=== PATIENT | male | born 1965 | race Caucasian/White ===

== ENCOUNTER 2019-07-16 15:44 | Emergency (ER) | payer BC ==
--- NOTE | 2019-07-16 15:57 | ED.PDOC ---
History of Present Illness - General Chief Complaint: Respiratory Problem Stated Complaint: Cough, mid chest discomfort, mild frontal headache Time Seen by Provider: 07/16/19 15:51 - History of Present Illness Comments: Pt says he's had cough, typically productive since Friday. He reports subjective fever, but has not measure it. He denies SOB but reports mid chest discomfort that's intermittent. He says a close family member was recently diagnosed with bronchitis. He denies runny nose, congestion or sore throat. Pt has been smoking for >40 years, and reports a previous dx of asthma. Pt has no dx'ed heart history. His work asked him to be seen prior to returning to work. Allergies/Adverse Reactions: Allergies NO KNOWN ALLERGY Allergy (Verified 07/16/19 16:01) Home Medications: Ambulatory Orders Albuterol Inhaler [Ventolin Hfa Inhaler] 1 puff INH Q4HR #1 inh 07/16/19 Doxycycline (Monohydrate) [Doxycycline Monohydrate] 100 mg PO BID #14 cap 07/16/19 Prednisone 60 mg PO DAILY #15 tab 07/16/19 Review of Systems - Review of Systems Constitutional: States: see HPI, fever - subjective, weakness. Denies: chills, diaphoresis EENTM: States: no symptoms reported. Denies: ear pain, ear discharge, nose pain, nose congestion, throat pain, throat swelling Respiratory: States: see HPI, cough. Denies: orthopnea, short of breath, stridor, wheezing Cardiology: States: see HPI, chest pain. Denies: edema, palpitations, syncope Gastrointestinal/Abdominal: States: no symptoms reported. Denies: abdominal pain, constipation, diarrhea, nausea, vomiting Genitourinary: States: no symptoms reported Musculoskeletal: States: no symptoms reported Skin: States: no symptoms reported Neurological: States: no symptoms reported Endocrine: States: no symptoms reported Family Medical History - Family History Mother Family History: No Known Living Status: Unknown Hx Family Hypertension: Yes Physical Exam - Physical Exam General Appearance: Alert, Comfortable, No apparent distress ENT Exam: normal ENT inspection Neck: non-tender, full range of motion, supple, normal inspection Respiratory: chest non-tender, no respiratory distress, no accessory muscle use, wheezing - minimal, expiration Cardiovascular/Chest: normal peripheral pulses, regular rate, rhythm, no edema, no gallop, no JVD, no murmur Gastrointestinal/Abdominal: normal bowel sounds, non tender, soft, no organomegaly, no pulsatile mass Neurologic: alert, normal mood/affect, oriented x 3 Skin Exam: normal color Progress - Progress Progress: 07/16/19 16:53 Laboratory Tests 07/16/19 07/16/19 07/16/19 16:27 16:27 16:27 WBC 6.8 RBC 5.53 Hgb 17.6 Hct 50.9 MCV 92.0 MCH 31.8 H MCHC 34.5 RDW 13.7 Plt Count 231 MPV 9.0 Absolute Neuts (auto) 4.20 Absolute Lymphs (auto) 1.70 Absolute Monos (auto) 0.60 Absolute Eos (auto) 0.20 Absolute Basos (auto) 0.10 Neutrophils % 62.1 Lymphocytes % 24.8 Monocytes % 8.6 Eosinophils % 3.6 Basophils % 0.9 Sodium 140 Potassium 4.3 Chloride 105 Carbon Dioxide 29 Anion Gap 10.3 L BUN 13 Creatinine 0.79 BUN/Creatinine Ratio 16.5 Random Glucose 84 Serum Osmolality 278.7 Calcium 9.2 Total Bilirubin 0.6 AST 24 ALT 32 Alkaline Phosphatase 71 Troponin I < 0.02 Serum Total Protein 7.7 Albumin 4.2 Globulin 3.5 Albumin/Globulin Ratio 1.2 Patient Name: TAMMY PIMENTEL Gender: Male Date of : 1965 Referring Physician: GE FRANKLIN Organization: [facility] Accession Number: [id number] Requested Date: July 16, 2019 16:05 Report Status: Final Requested Procedure: 1 Procedure Description: Chest,1 View Modality: CR Findings Reporting MD: Ye Peñaloza Fellow MD: Not available Dictation Time: 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 CLINICAL HISTORY: 53 years Male CP COMPARISON: None. TECHNIQUE: ONE VIEW PORTABLE. AP 1619 hours, upright position. FINDINGS: Slightly increased infiltrate in the right base. No pleural effusion or pneumothorax. Cardiopulmonary vascular structures are unremarkable. No bony thoracic acute abnormalities. IMPRESSION: Atelectasis versus early pneumonia right lung base. Consider follow-up two-view chest x-ray when patient stable. Electronically signed by: Ye Peñaloza MD 07/16/2019 4:27 PM CDT Workstation: [id number] 4:55pm D/w pt all results. I will rx pt abx and I asked him to have his CXR repeated within the next 2 weeks, and return if it worsens. Labs unremarkable, nothing to suggest ACS. CXR shows either atelectasis or early infiltrate. - EKG/XRAY/CT EKG: Sinus, no ST T wave changes Comments: Rate 79; nl ST segments, nl intervals, nl axis Departure - Departure Clinical Impression: History of asthma, Wheezing, Tobacco use, Pneumonia Time of Disposition: 16:57 Disposition: Discharge to Home or Self Care Condition: Good Departure Forms: ED Discharge - Pt. Copy, Patient Portal Self Enrollment Instructions: DI for Asthma -- Adult, DI for Pneumonia -- Adult Diet: resume usual diet Activity: increase activity as tolerated Prescriptions: Albuterol Inhaler [Ventolin Hfa Inhaler] 1 puff INH Q4HR #1 inh Doxycycline (Monohydrate) [Doxycycline Monohydrate] 100 mg PO BID #14 cap Prednisone 60 mg PO DAILY #15 tab Home Medications: Ambulatory Orders Albuterol Inhaler [Ventolin Hfa Inhaler] 1 puff INH Q4HR #1 inh 07/16/19 Doxycycline (Monohydrate) [Doxycycline Monohydrate] 100 mg PO BID #14 cap 07/16/19 Prednisone 60 mg PO DAILY #15 tab 07/16/19
[2019-07-16] MEDS ORDERED: ASPIRIN TABLET 325 MG TAB PO ONE (16:05)
--- NOTE | 2019-07-16 16:28 | RAD ---
EXAM DESCRIPTION: Chest,1 View: CR/DR/XR. CLINICAL HISTORY: 53 years Male CP COMPARISON: None. TECHNIQUE: ONE VIEW PORTABLE. AP 1619 hours, upright position. FINDINGS: Slightly increased infiltrate in the right base. No pleural effusion or pneumothorax. Cardiopulmonary vascular structures are unremarkable. No bony thoracic acute abnormalities. IMPRESSION: Atelectasis versus early pneumonia right lung base. Consider follow-up two-view chest x-ray when patient stable. Electronically signed by: Ye Peñaloza MD 07/16/2019 4:27 PM CDT
[2019-07-16 17:35] VITALS: BP 130/96; TEMP 97.2; O2SAT 96
== END 2019-07-16 17:25 | disposition home or self-care (01) ==
LOC: ER 15:44
DX: J18.9 Pneumonia, unspecified organism (principal); J45.909 Unspecified asthma, uncomplicated; F17.200 Nicotine dependence, unspecified, uncomplicated; R07.89 Other chest pain